=== PATIENT | female | born 1935 | race Caucasian/White ===

== ENCOUNTER 2017-06-09 08:43 | Emergency (ER) | payer MEDICARE, OTHER ==
[~2017-06-09] VITALS: Ht 162.6 cm; Wt 71.0 kg
[~2017-06-09 08:43] MED LIST: AMIT10 PO; CALC-187 PO
[2017-06-09 08:46] VITALS: BP 180/86; PULSE 86; RESP 16; TEMP 97.5; O2SAT 97
--- NOTE | 2017-06-09 09:02 | PD ---
HPI Chief Complaint: Injury Time Seen by Provider: 08:53 Travel History International Travel<30 days: No Contact w/Intl Traveler<30days: No Traveled to known affect area: No History of Present Illness HPI 81 y/o female presents after 3 days ago she went to prevent a turkey from eating a plastic bag when she fell against a rake on her right ribs. She did not hit her head or black out. She denies any other concurrent complaints. Quality pain is sharp. Severity is moderate. Pain is worse with movements. She denies other modifying factors. She denies taking any blood thinner medications. [facility] Past Medical History Medical History: Denies Significant Hx Influenza Vaccination: No ?: Not Past Surgical History Surgical History: No Previous Surgery Tonsillectomy: Yes (age 25) Social History Alcohol Use: No Tobacco Use: No Substance Use: No Allergies-Medications (Allergen,Severity, Reaction): Coded Allergies: loratadine (Unverified Allergy, Severe, Cough, 06/09/17) pseudoephedrine (Unverified Allergy, Severe, Cough, 06/09/17) Reported Meds & Prescriptions Reported Meds & Active Scripts Active Review of Systems Except as stated in HPI: all other systems reviewed are Neg Physical Exam Narrative General: 81 y/o patient in no apparent distress Skin: Warm and dry Eyes: Pupils equal NECK: no pain with palpation, nexus criteria negative Cardiovascular: Regular rate and rhythm Respiratory: Normal respiratory effort noted, clear to auscultation bilaterally Abdomen: soft, nontender, nondistended Back: No step-offs, midline spine nontender with palpation Extremities: No pain with range of motion of main joints Neuro: awake, alert, sensation and motor grossly intact Chest wall: Tender to left mid lower posterior ribs on the right without step- off or crepitus Data Data Last Documented VS Vital Signs Date Time Temp Pulse Resp B/P (MAP) Pulse Ox O2 Delivery O2 Flow Rate FiO2 06/09/17 08:46 97.5 86 16 180/86 (117) 97 Room Air Orders Orders Chest, Pa & Lat (06/09/17 ) [facility] Medical Decision Making Medical Screen Exam Complete: Yes Emergency Medical Condition: Yes Medical Record Reviewed: Yes (past history confirmed) Interpretation(s) cxr no acute Differential Diagnosis Fracture, pneumothorax, strain Narrative Course Will check chest x-ray and reevaluate. Patient declining pain medication at initial evaluation cxr no acute, offered prescription for pain control but patient states she wants to take [id number] medications for provided recommendations, Patient denies any new complaints, all questions answered. Patient knows that follow up is incumbent on them and to return to the emergency room immediately if new or worsening symptoms develop. Patient given strict return precautions, vitals reviewed and are normal, agrees to further workup as an outpatient. Diagnosis Primary Impression: Rib pain on right side Patient Instructions: General Instructions Additional Instructions: return as needed, follow with primary this week, tylenol as needed for pain, keep blood pressure log Med/Other Pt SpecificInfo: No Change to Meds Disposition: 01 DISCHARGE HOME Condition: Stable Maddy Sharma MD Jun 09, 2017 09:02
--- NOTE | 2017-06-09 09:02 | PD ---
HPI Chief Complaint: Injury Time Seen by Provider: 08:53 Travel History International Travel<30 days: No Contact w/Intl Traveler<30days: No Traveled to known affect area: No History of Present Illness HPI 81 y/o female presents after 3 days ago she went to prevent a turkey from eating a plastic bag when she fell against a rake on her right ribs. She did not hit her head or black out. She denies any other concurrent complaints. Quality pain is sharp. Severity is moderate. Pain is worse with movements. She denies other modifying factors. She denies taking any blood thinner medications. [facility] Past Medical History Medical History: Denies Significant Hx Influenza Vaccination: No ?: Not Past Surgical History Surgical History: No Previous Surgery Tonsillectomy: Yes (age 25) Social History Alcohol Use: No Tobacco Use: No Substance Use: No Allergies-Medications (Allergen,Severity, Reaction): Coded Allergies: loratadine (Unverified Allergy, Severe, Cough, 06/09/17) pseudoephedrine (Unverified Allergy, Severe, Cough, 06/09/17) Reported Meds & Prescriptions Reported Meds & Active Scripts Active Review of Systems Except as stated in HPI: all other systems reviewed are Neg Physical Exam Narrative General: 81 y/o patient in no apparent distress Skin: Warm and dry Eyes: Pupils equal NECK: no pain with palpation, nexus criteria negative Cardiovascular: Regular rate and rhythm Respiratory: Normal respiratory effort noted, clear to auscultation bilaterally Abdomen: soft, nontender, nondistended Back: No step-offs, midline spine nontender with palpation Extremities: No pain with range of motion of main joints Neuro: awake, alert, sensation and motor grossly intact Chest wall: Tender to left mid lower posterior ribs on the right without step- off or crepitus Data Data Last Documented VS Vital Signs Date Time Temp Pulse Resp B/P (MAP) Pulse Ox O2 Delivery O2 Flow Rate FiO2 06/09/17 08:46 97.5 86 16 180/86 (117) 97 Room Air Orders Orders Chest, Pa & Lat (06/09/17 ) [facility] Medical Decision Making Medical Screen Exam Complete: Yes Emergency Medical Condition: Yes Medical Record Reviewed: Yes (past history confirmed) Interpretation(s) cxr no acute Differential Diagnosis Fracture, pneumothorax, strain Narrative Course Will check chest x-ray and reevaluate. Patient declining pain medication at initial evaluation cxr no acute, offered prescription for pain control but patient states she wants to take [id number] medications for provided recommendations, Patient denies any new complaints, all questions answered. Patient knows that follow up is incumbent on them and to return to the emergency room immediately if new or worsening symptoms develop. Patient given strict return precautions, vitals reviewed and are normal, agrees to further workup as an outpatient. Diagnosis Primary Impression: Rib pain on right side Patient Instructions: General Instructions Additional Instructions: return as needed, follow with primary this week, tylenol as needed for pain, keep blood pressure log Med/Other Pt SpecificInfo: No Change to Meds Disposition: 01 DISCHARGE HOME Condition: Stable Maddy Sharma MD Jun 09, 2017 09:02
--- NOTE | 2017-06-09 09:02 | PD ---
HPI Chief Complaint: Injury Time Seen by Provider: 08:53 Travel History International Travel<30 days: No Contact w/Intl Traveler<30days: No Traveled to known affect area: No History of Present Illness HPI 81 y/o female presents after 3 days ago she went to prevent a turkey from eating a plastic bag when she fell against a rake on her right ribs. She did not hit her head or black out. She denies any other concurrent complaints. Quality pain is sharp. Severity is moderate. Pain is worse with movements. She denies other modifying factors. She denies taking any blood thinner medications. [facility] Past Medical History Medical History: Denies Significant Hx Influenza Vaccination: No ?: Not Past Surgical History Surgical History: No Previous Surgery Tonsillectomy: Yes (age 25) Social History Alcohol Use: No Tobacco Use: No Substance Use: No Allergies-Medications (Allergen,Severity, Reaction): Coded Allergies: loratadine (Unverified Allergy, Severe, Cough, 06/09/17) pseudoephedrine (Unverified Allergy, Severe, Cough, 06/09/17) Reported Meds & Prescriptions Reported Meds & Active Scripts Active Review of Systems Except as stated in HPI: all other systems reviewed are Neg Physical Exam Narrative General: 81 y/o patient in no apparent distress Skin: Warm and dry Eyes: Pupils equal NECK: no pain with palpation, nexus criteria negative Cardiovascular: Regular rate and rhythm Respiratory: Normal respiratory effort noted, clear to auscultation bilaterally Abdomen: soft, nontender, nondistended Back: No step-offs, midline spine nontender with palpation Extremities: No pain with range of motion of main joints Neuro: awake, alert, sensation and motor grossly intact Chest wall: Tender to left mid lower posterior ribs on the right without step- off or crepitus Data Data Last Documented VS Vital Signs Date Time Temp Pulse Resp B/P (MAP) Pulse Ox O2 Delivery O2 Flow Rate FiO2 06/09/17 08:46 97.5 86 16 180/86 (117) 97 Room Air Orders Orders Chest, Pa & Lat (06/09/17 ) [facility] Medical Decision Making Medical Screen Exam Complete: Yes Emergency Medical Condition: Yes Medical Record Reviewed: Yes (past history confirmed) Interpretation(s) cxr no acute Differential Diagnosis Fracture, pneumothorax, strain Narrative Course Will check chest x-ray and reevaluate. Patient declining pain medication at initial evaluation cxr no acute, offered prescription for pain control but patient states she wants to take [id number] medications for provided recommendations, Patient denies any new complaints, all questions answered. Patient knows that follow up is incumbent on them and to return to the emergency room immediately if new or worsening symptoms develop. Patient given strict return precautions, vitals reviewed and are normal, agrees to further workup as an outpatient. Diagnosis Primary Impression: Rib pain on right side Patient Instructions: General Instructions Additional Instructions: return as needed, follow with primary this week, tylenol as needed for pain, keep blood pressure log Med/Other Pt SpecificInfo: No Change to Meds Disposition: 01 DISCHARGE HOME Condition: Stable Maddy Sharma MD Jun 09, 2017 09:02
--- NOTE | 2017-06-09 09:21 | RADRPT ---
EXAM DATE/TIME: 06/09/2017 09:04 [facility] COMPARISON: No previous studies available for comparison. INDICATIONS : Right sided chest pain after patient was fell 3 days ago MEDICAL HISTORY : None. SURGICAL HISTORY : None. ENCOUNTER: Initial ACUITY: 3 days PAIN SCORE: 7/10 LOCATION: Right chest FINDINGS: The heart size is normal. The lungs are hyperinflated. There are free of focal consolidation. There i s a calcified granuloma in the lateral right upper lung. No effusion is seen. Mild spurs are seen in the thoracic spine. CONCLUSION: 1. Hyperinflated lungs. 2. No acute abnormality seen. Lacho Suazo MD on June 09, 2017 at 9:18 Board Certified Radiologist. This report was verified electronically.
[2017-06-09 09:37] VITALS: BP 158/80
== END 2017-06-09 09:38 | disposition home or self-care (01) ==
LOC: PHED 08:43
DX: R07.81 Pleurodynia (principal); W18.39XA Other fall on same level, initial encounter
CPT/HCPCS: 71020; 99283

== ENCOUNTER → 2017-10-22 | Outpatient (CLI) | payer MEDICARE, OTHER ==
[2017-10-22 11:54] LABS: AUTOMATED NEUTROPHIL # 2.9 TH/MM3 (1.8-7.7); BASOPHIL % 0.4 % (0.0-2.0); EOSINOPHIL # 0.2 TH/MM3 (0-0.4); EOSINOPHIL % 4.1 % (0.0-4.0); HEMOGLOBIN 14.9 GM/DL (11.6-15.3); LYMPH % 34.2 % (9.0-44.0); LYMPHOCYTE # 1.8 TH/MM3 (1.0-4.8); MEAN CELL VOLUME 90.4 FL (80.0-100.0); MEAN CORPUSCULAR HEMOGLOBIN 30.6 PG (27.0-34.0); MEAN CORPUSCULAR HGB CONC 33.8 % (32.0-36.0); MEAN PLATELET VOLUME 8.1 FL (7.0-11.0); MONO % 7.1 % (0.0-8.0); MONOCYTE # 0.4 TH/MM3 (0-0.9); NEUT % 54.2 % (16.0-70.0); PLATELET COUNT 287 TH/MM3 (150-450); RED BLOOD COUNT 4.86 MIL/MM3 (4.00-5.30); RED CELL DISTRIBUTION WIDTH 13.4 % (11.6-17.2); WHITE BLOOD COUNT 5.3 TH/MM3 (4.0-11.0)
[2017-10-22 12:17] LABS: AST (GOT) 20 U/L (15-37); BICARBONATE 31.9 MEQ/L (21.0-32.0); BLOOD UREA NITROGEN 16 MG/DL (7-18); CALCIUM 9.2 MG/DL (8.5-10.1); CHLORIDE 102 MEQ/L (98-107); CREATININE 0.99 MG/DL (0.50-1.00); GLOMERULAR FILTRATION RATE 53 ML/MIN (>89); GLUCOSE,FASTING 93 MG/DL (74-99); SODIUM (NA) 141 MEQ/L (136-145)
[2017-10-22 12:18] LABS: CHOLESTEROL 208 MG/DL (120-200)
[2017-10-22 12:29] LABS: ALKALINE PHOSPHATASE 114 U/L (45-117); ALT (GPT) 19 U/L (10-53); CHOLESTEROL/ HDL RATIO 3.75 RATIO; HDL CHOLESTEROL 55.4 MG/DL (40.0-60.0); LDL CHOLESTEROL 128 MG/DL (0-99); TOTAL BILIRUBIN ADULT 0.7 MG/DL (0.2-1.0); TOTAL PROTEIN 7.5 GM/DL (6.4-8.2); TRIGLYCERIDES 121 MG/DL (42-150)
== END ==
LOC: PLAB 07:24
PROVIDERS: ATTEND Family Medicine
DX: E78.5 Hyperlipidemia, unspecified (principal); R53.83 Other fatigue; E55.9 Vitamin D deficiency, unspecified
CPT/HCPCS: 36415; 80053; 80061; 82306; 84443; 85025